=== PATIENT | female | born 1945 | race Caucasian/White ===

== ENCOUNTER 2019-07-16 22:34 | Inpatient (IN) | payer OTHER ==
[~2019-07-16] VITALS: Ht 170.2 cm; Wt 110.5 kg
[2019-07-16] MEDS ORDERED: FENTANYL-0.9 % NACL/PF 100 ML IV PRN (22:37)
[2019-07-16] MEDS ORDERED: midazolam 100mg in NS 100ml 100 ML IV PRN (22:37)
--- NOTE | 2019-07-16 22:39 | NUR ---
PT INTUBATED AT 2235 BY MD MENDEZ, ETOMIDATE 10MG, ROCURONIUM 70MG. ETT: 8.0, 22 @ [facility].
--- NOTE | 2019-07-16 22:49 | NUR ---
FAMILY AT ER - TAKEN TO RAP ROOM AND ADVISED THAT MD WOULD BE IN SHORTLY TO UPDATE THEM ON PTS STATUS.
[2019-07-16 22:56] LABS: BASOPHILS # (AUTO) 0.1 X10'3 (0-0.2); BASOPHILS % (AUTO) 1.2 % (0-1); EOSINOPHILS # (AUTO) 0.2 X10'3 (0-0.9); EOSINOPHILS % (AUTO) 1.5 % (0-6); HEMATOCRIT 36.4 % (35.0-45.0); HEMOGLOBIN 11.2 g/dl (12.0-16.0); LYMPHOCYTES # (AUTO) 1.5 X10'3 (1.1-4.8); LYMPHOCYTES % (AUTO) 12.9 % (21-51); MEAN CORPUSCULAR HEMOGLOBIN 28.6 PG (27.0-31.0); MEAN CORPUSCULAR HGB CONC 30.8 g/dL (33.0-36.5); MEAN CORPUSCULAR VOLUME 92.8 FL (78-98); MONOCYTES # (AUTO) 0.4 X10'3 (0-0.9); MONOCYTES % (AUTO) 3.3 % (2-12); NEUTROPHILS # (AUTO) 9.2 X10'3 (1.8-7.7); NEUTROPHILS % (AUTO) 81.1 % (42-75); PLATELET COUNT 200 X10'3 (140-440); RED BLOOD COUNT 3.92 X10'6 (4.20-5.60); RED CELL DISTRIBUTION WIDTH 17.2 % (11.5-14.5); WHITE BLOOD COUNT 11.4 X10'3 (4.5-11.0)
[2019-07-16] MEDS ORDERED: iohexol 350MG/ML 100ml bottle IV ONE (22:57)
[2019-07-16 23:06] LABS: PARTIAL THROMBOPLASTIN TIME 31 SECONDS (22-32)
[2019-07-16 23:08] LABS: UA COLLECTION TYPE FOLEY CATH
[2019-07-16 23:09] LABS: CLARITY,URINE TURBID (Clear); COLOR,URINE YELLOW (Yellow); GLUCOSE, URINE 100 mg/dl (Neg); KETONES,URINE NEGATIVE (Neg); LEUKOCYTE ESTERASE ,URINE LARGE (Neg); NITRITES, URINE NEGATIVE (Neg); OCCULT BLOOD,URINE LARGE (Neg); PROTEIN,URINE >=300 mg/dl (Neg); UROBILINOGEN,URINE 0.2 E.U/dL (0.2-1.0)
[2019-07-16 23:10] LABS: URINE AMPHETAMINE SCREEN NEGATIVE (Neg); URINE BARBITUATE SCREEN NEGATIVE (Neg); URINE BENZODIAZEPINES SCREEN NEGATIVE (Neg); URINE COCAINE SCREEN NEGATIVE (Neg); URINE METHADONE SCREEN NEGATIVE (Neg); URINE OPIATE SCREEN NEGATIVE (Neg)
[2019-07-16 23:11] LABS: ALANINE AMINOTRANSFERASE 61 U/L (12-78); ALBUMIN 2.8 G/DL (3.4-5.0); ALBUMIN/GLOBULIN RATIO 0.7 (1.1-1.5); ALKALINE PHOSPHATASE 163 IU/L (46-116); ANION GAP 13 (8-16); ASPARTATE AMINO TRANSFERASE 62 U/L (10-37); BILIRUBIN,TOTAL 0.2 MG/DL (0.1-1.0); BLOOD UREA NITROGEN 101 MG/DL (7-18); BUN/CREATININE RATIO 17.7 (6.6-38.0); CHLORIDE 108 MMOL/L (99-107); CREATININE 5.72 MG/DL (0.40-0.90); ETHANOL < 0.010 GM/DL (0.0-0.010); GLUCOSE 275 MG/DL (70-104); POTASSIUM 5.1 MMOL/L (3.5-5.1); SODIUM 141 MMOL/L (135-145); TOTAL CARBON DIOXIDE 19.6 MMOL/L (24-32); TOTAL PROTEIN 7.1 G/DL (6.4-8.2); eGFR 7 ML/MIN
[2019-07-16 23:14] LABS: BACTERIA,URINE 3+ /HPF (Neg); MUCUS STRANDS NONE SEEN /LPF (Neg); SQUAMOUS EPITHELIAL CELL,UR NONE SEEN /LPF (FEW); WBC,URINE TNTC /HPF (0-4)
[2019-07-16 23:21] LABS: URINE PHENCYCLIDINE SCREEN NEGATIVE (Neg)
[2019-07-16 23:26] LABS: URINE CANNABINOID SCREEN POSITIVE (Neg)
[2019-07-16] MEDS ORDERED: normal saline 1000ml 1,000 ML IV ONE (23:30)
[2019-07-16] MEDS ORDERED: CefTRIAXone 2gm/D5W 50ml 50 ML IV ONE (23:30)
[2019-07-17] VITALS (22 sets, daily range): BP systolic 127–165; BP diastolic 58–86
[2019-07-17] MEDS ORDERED: ASPI81TA30 PO (00:17)
[2019-07-17] MEDS ORDERED: CARV6.253 PO (00:20)
[2019-07-17] MEDS ORDERED: FURO40TA4 PO (00:21)
[2019-07-17] MEDS ORDERED: PREG50CA PO (00:22)
[2019-07-17] MEDS ORDERED: midazolam 100mg in NS 100ml 100 ML IV PRN (00:53)
[2019-07-17] MEDS ORDERED: potassium Cl 20mEq/100mL bag 100 ML IV PRN ×2 (00:55)
[2019-07-17] MEDS ORDERED: magnesium 2GM in 50ml NS 50 ML IV PRN (00:55)
[2019-07-17] MEDS ORDERED: magnesium 4gm in 100ml NS 100 ML IV PRN (00:55)
[2019-07-17] MEDS ORDERED: albuterol 2.5 MG/3 ML nebule NEB PRN (00:55)
[2019-07-17] MEDS ORDERED: acetaminophen 650mg rectal suppository RC PRN (00:55)
[2019-07-17] MEDS ORDERED: acetaminophen 325mg tablet PO PRN (00:55)
[2019-07-17 01:01] LABS: ABG BASE EXCESS -10.8 mmol/L (-2.0-3.0); ABG HCO3 17.6 mmol/L (22.0-26.0); ABG OXYGEN SATURATION 97.4 % (95-98); ABG PCO2 (T) 46.8 mmHg (35.0-45.0); ABG PH (T) 7.183 (7.350-7.450); ABG PO2 (T) 123.4 mmHg (83-108); FCOHb 0.7 % (0.5-1.5); FMetHb 0.3 % (0.3-1.12); FO2Hb 96.4 % (94-100); MINUTE VOLUME 7 L/min; PATIENT TEMPERATURE 35.3; PEEP 5 cm H2O; RESPIRATORY RATE 16 b/min; RESPIRATORY RATE (OBSERVED) 16 b/min; TIDAL VOLUME 400 mL; TOTAL HEMOGLOBIN 10.8 G/dl (12.0-16.0)
--- NOTE | 2019-07-17 01:01 | NUR ---
MD MENDEZ CONFIRMED CENTRAL LINE PLACEMENT WITH XRAY.
[2019-07-17 01:16] LABS: OXYGEN SATURATION (MIXED VEN) 71.5 % (60-80); PO2 MIXED VENOUS (TEMP COR) 38.7 mmHg (35-46)
[2019-07-17] MEDS: normal saline 1000ml 1,000 ML IV SCH ×4 (01:22→16:24)
[2019-07-17 01:34] LABS: BASOPHILS % (AUTO) 0.3 % (0-1); EOSINOPHILS # (AUTO) 0.1 X10'3 (0-0.9); EOSINOPHILS % (AUTO) 0.4 % (0-6); HEMATOCRIT 31.1 % (35.0-45.0); HEMOGLOBIN 9.7 g/dl (12.0-16.0); LYMPHOCYTES # (AUTO) 0.4 X10'3 (1.1-4.8); LYMPHOCYTES % (AUTO) 2.9 % (21-51); MEAN CORPUSCULAR HEMOGLOBIN 28.5 PG (27.0-31.0); MEAN CORPUSCULAR HGB CONC 31.2 g/dL (33.0-36.5); MEAN CORPUSCULAR VOLUME 91.2 FL (78-98); MEAN PLATELET VOLUME 9.7 FL (7.4-10.4); MONOCYTES # (AUTO) 0.8 X10'3 (0-0.9); MONOCYTES % (AUTO) 5.2 % (2-12); NEUTROPHILS # (AUTO) 13.9 X10'3 (1.8-7.7); NEUTROPHILS % (AUTO) 91.2 % (42-75); PLATELET COUNT 170 X10'3 (140-440); RED BLOOD COUNT 3.41 X10'6 (4.20-5.60); WHITE BLOOD COUNT 15.3 X10'3 (4.5-11.0)
[2019-07-17 01:45] LABS: PARTIAL THROMBOPLASTIN TIME 32 SECONDS (22-32)
[2019-07-17 01:46] LABS: ALANINE AMINOTRANSFERASE 74 U/L (12-78); ALBUMIN 2.2 G/DL (3.4-5.0); ALBUMIN/GLOBULIN RATIO 0.6 (1.1-1.5); ALKALINE PHOSPHATASE 142 IU/L (46-116); ANION GAP 12 (8-16); ASPARTATE AMINO TRANSFERASE 88 U/L (10-37); BILIRUBIN,TOTAL 0.2 MG/DL (0.1-1.0); BLOOD UREA NITROGEN 107 MG/DL (7-18); BUN/CREATININE RATIO 18.4 (6.6-38.0); CALCIUM 6.4 MG/DL (8.5-10.1); CHLORIDE 110 MMOL/L (99-107); CREATININE 5.83 MG/DL (0.40-0.90); GLUCOSE 234 MG/DL (70-104); POTASSIUM 4.8 MMOL/L (3.5-5.1); SODIUM 142 MMOL/L (135-145); TOTAL CARBON DIOXIDE 20.1 MMOL/L (24-32); TOTAL PROTEIN 5.7 G/DL (6.4-8.2); eGFR 7 ML/MIN
[2019-07-17 01:56] LABS: MAGNESIUM 2.6 MG/DL (1.5-2.4); TROPONIN I 0.07 NG/ML (0.0-0.05)
--- NOTE | 2019-07-17 02:10 | NUR ---
Patient in room CICU 2007 via jungrryan. I have received report from BACKUP ADMINISTRATORJONEL Catalan and had the opportunity to ask questions and assume patient care.
[2019-07-17] MEDS ORDERED: diphenhydrAMINE 50 mg/ml inj IV ONE (02:35)
[2019-07-17] MEDS ORDERED: famotidine/PF 10 mg/ml inj IV ONE (02:35)
[2019-07-17] MEDS ORDERED: DOPamine 400mg/D5W 250ml 250 ML IV ONE (02:35)
[2019-07-17] MEDS: ipratropium/albuterol 3ml nebule NEB SCH ×6 (03:02→23:38)
[2019-07-17] MEDS ORDERED: MESSAGE TO PHARMACY PO ONE (04:45)
[2019-07-17] MEDS ORDERED: dextrose ORAL solution 15 GM/59 ML bottle PO PRN ×2 (04:45)
[2019-07-17] MEDS ORDERED: insulin Lispro (HumaLOG) vial - multi-dose SQ SCH (04:45)
[2019-07-17] MEDS ORDERED: dextrose 50%-water 50ml dispensing syringe IV PRN ×2 (04:45)
[2019-07-17] MEDS ORDERED: glucagon, human recombinant 1mg kit SUBCUT PRN (04:45)
[2019-07-17 04:59] LABS: HEMOGLOBIN A1C 7.7 % (4.5-6.2)
--- NOTE | 2019-07-17 06:30 | NUR ---
Problems reprioritized. Patient report given, questions answered & plan of care reviewed with Bill REMY.
--- NOTE | 2019-07-17 06:35 | NUR ---
Patient in room CICU 2006. I have received report from JONEL Moreno and had the opportunity to ask questions and assume patient care.
[2019-07-17] MEDS: docusate sodium 100mg/10ml UD cup PO SCH ×2 (07:40→23:03)
[2019-07-17] MEDS: aspirin 81mg tab.chew PO SCH (07:40)
[2019-07-17] MEDS: pantoprazole 40 MG vial IV SCH (07:40)
[2019-07-17 07:51] LABS: ALBUMIN 2.3 G/DL (3.4-5.0); ANION GAP 15 (8-16); BLOOD UREA NITROGEN 105 MG/DL (7-18); CALCIUM 6.8 MG/DL (8.5-10.1); CHLORIDE 110 MMOL/L (99-107); CKMB RELATIVE INDEX 4.5 RATIO (0-2.5); CREATINE KINASE 162 U/L (26-192); CREATININE 5.54 MG/DL (0.40-0.90); GLUCOSE 218 MG/DL (70-104); MAGNESIUM 2.5 MG/DL (1.5-2.4); POTASSIUM 4.2 MMOL/L (3.5-5.1); SODIUM 144 MMOL/L (135-145); TROPONIN I 0.46 NG/ML (0.0-0.05); eGFR 7 ML/MIN
[2019-07-17] MEDS: DOPamine 400mg/D5W 250ml 250 ML IV SCH ×2 (07:59→20:31)
[2019-07-17] MEDS: carvedilol 6.25mg tablet PO SCH ×2 (08:00→20:00)
[2019-07-17 08:01] LABS: OXYGEN SATURATION (MIXED VEN) 72.4 % (60-80); PO2 MIXED VENOUS (TEMP COR) 25.8 mmHg (35-46)
[2019-07-17 08:01] LABS: ABG BASE EXCESS -8.9 mmol/L (-2.0-3.0); ABG HCO3 15.7 mmol/L (22.0-26.0); ABG OXYGEN SATURATION 94.6 % (95-98); ABG PCO2 (T) 24.8 mmHg (35.0-45.0); ABG PH (T) 7.399 (7.350-7.450); ABG PO2 (T) 55.8 mmHg (83-108); FCOHb 0.3 % (0.5-1.5); FMetHb 0.3 % (0.3-1.12); MINUTE VOLUME 8 L/min; PATIENT TEMPERATURE 32.5; PEEP 5 cm H2O; RESPIRATORY RATE 20 b/min; RESPIRATORY RATE (OBSERVED) 20 b/min; TIDAL VOLUME 400 mL; TOTAL HEMOGLOBIN 11.5 G/dl (12.0-16.0)
--- NOTE | 2019-07-17 12:26 | NUR ---
Patient is s/p code, currently on hypothermia protocol. Must be NPO. Will continue to follow. Addendum: 07/17/19 at [address] Amended: Links added.
[2019-07-17 14:04] LABS: ANION GAP 13 (8-16); BLOOD UREA NITROGEN 98 MG/DL (7-18); BUN/CREATININE RATIO 20.1 (6.6-38.0); CALCIUM 6.5 MG/DL (8.5-10.1); CHLORIDE 114 MMOL/L (99-107); CREATININE 4.88 MG/DL (0.40-0.90); GLUCOSE 151 MG/DL (70-104); MAGNESIUM 2.4 MG/DL (1.5-2.4); SODIUM 146 MMOL/L (135-145); TOTAL CARBON DIOXIDE 18.9 MMOL/L (24-32); eGFR 9 ML/MIN
[2019-07-17 14:12] LABS: POTASSIUM 3.5 MMOL/L (3.5-5.1)
[2019-07-17] MEDS: FENTANYL-0.9 % NACL/PF 100 ML IV PRN (14:19)
[2019-07-17 15:01] LABS: OXYGEN SATURATION (MIXED VEN) 63.7 % (60-80); PO2 MIXED VENOUS (TEMP COR) 23.9 mmHg (35-46)
[2019-07-17 15:06] LABS: ABG BASE EXCESS -7.8 mmol/L (-2.0-3.0); ABG HCO3 16.7 mmol/L (22.0-26.0); ABG OXYGEN SATURATION 94.8 % (95-98); ABG PCO2 (T) 25.3 mmHg (35.0-45.0); ABG PH (T) 7.417 (7.350-7.450); ABG PO2 (T) 58.6 mmHg (83-108); FCOHb 0.1 % (0.5-1.5); FMetHb 0.3 % (0.3-1.12); FO2Hb 94.4 % (94-100); MINUTE VOLUME 8 L/min; PATIENT TEMPERATURE 32.7; PEEP 5 cm H2O; RESPIRATORY RATE 20 b/min; RESPIRATORY RATE (OBSERVED) 19 b/min; TIDAL VOLUME 400 mL; TOTAL HEMOGLOBIN 10.6 G/dl (12.0-16.0)
[2019-07-17 17:19] LABS: ALBUMIN 2.1 G/DL (3.4-5.0); ANION GAP 14 (8-16); BLOOD UREA NITROGEN 99 MG/DL (7-18); BUN/CREATININE RATIO 19.5 (6.6-38.0); CALCIUM 6.8 MG/DL (8.5-10.1); CHLORIDE 113 MMOL/L (99-107); CREATINE KINASE 182 U/L (26-192); CREATININE 5.08 MG/DL (0.40-0.90); GLUCOSE 140 MG/DL (70-104); MAGNESIUM 2.4 MG/DL (1.5-2.4); POTASSIUM 3.5 MMOL/L (3.5-5.1); SODIUM 146 MMOL/L (135-145); eGFR 8 ML/MIN
[2019-07-17 17:32] LABS: TROPONIN I 1.78 NG/ML (0.0-0.05)
--- NOTE | 2019-07-17 18:23 | NUR ---
Problems reprioritized. Patient report given, questions answered & plan of care reviewed with Shilpi REMY.
--- NOTE | 2019-07-17 18:30 | NUR ---
Patient in room CICU 2006. I have received report from Ian REMY, and had the opportunity to ask questions and assume patient care.
--- NOTE | 2019-07-17 19:30 | NUR ---
PT is intubated and mechanically vented, tolerating settings well. O2 sat >96%. PT is sedated with Fent and Vesed, BIZ is in 60's. PT is in the cooling phase of hypothermia protocol, will begin to re-warm at 0200 on 07/18. PT family is at bedside. Kaba in place draining to gravity. OG is to LIS, clear/yellow drainage noted in tubing. Bed is locked and low. Bilat soft wrist restraints in place and secure. Will continue to monitor.
[2019-07-17 19:31] LABS: ABG HCO3 15.6 mmol/L (22.0-26.0); ABG OXYGEN SATURATION 94.8 % (95-98); ABG PCO2 (T) 24.7 mmHg (35.0-45.0); ABG PH (T) 7.399 (7.350-7.450); ALLEN'S TEST Positive; FCOHb 0.3 % (0.5-1.5); FMetHb 0.3 % (0.3-1.12); FO2Hb 94.2 % (94-100); MINUTE VOLUME 8 L/min; PATIENT TEMPERATURE 32.9; PEEP 5 cm H2O; RESPIRATORY RATE 20 b/min; RESPIRATORY RATE (OBSERVED) 20 b/min; TIDAL VOLUME 400 mL
[2019-07-17] MEDS: insulin glargine (Lantus) pen - multi-dose SQ SCH (21:00)
[2019-07-17 22:22] LABS: CLARITY,URINE SLIGHTLY CLOUDY (Clear); COLOR,URINE YELLOW (Yellow); GLUCOSE, URINE 100 mg/dl (Neg); KETONES,URINE NEGATIVE (Neg); LEUKOCYTE ESTERASE ,URINE MODERATE (Neg); NITRITES, URINE NEGATIVE (Neg); OCCULT BLOOD,URINE MODERATE (Neg); PH,URINE 5.5 (4.8-8.0); PROTEIN,URINE 100 mg/dl (Neg); UROBILINOGEN,URINE 0.2 E.U/dL (0.2-1.0)
[2019-07-17 22:23] LABS: UA COLLECTION TYPE FOLEY CATH
[2019-07-17 22:28] LABS: RBC,URINE NONE SEEN /HPF (0-2); WBC,URINE TNTC /HPF (0-4)
[2019-07-17 22:29] LABS: BACTERIA,URINE 1+ /HPF (Neg); SQUAMOUS EPITHELIAL CELL,UR FEW /LPF (FEW); TRANSITIONAL EPI CELLS,URINE FEW /HPF; WBC CLUMPS,URINE MODERATE /HPF (NEGATIVE)
[2019-07-17 22:30] LABS: COARSE GRANULAR CAST 0-3 /LPF (NEGATIVE)
--- NOTE | 2019-07-17 22:30 | NUR ---
PT resting with no s/s of distress noted at this time. VSS. Bed is locked and low. Bialt soft wrist restraints remain in place and secure. Will continue to monitor.
[2019-07-17 22:31] LABS: TOTAL PROTEIN,URINE RANDOM 98.7 MG/DL
[2019-07-17] MEDS: CefTRIAXone 2gm/D5W 50ml 50 ML IV SCH (22:58)
[2019-07-17] MEDS: lactobacillus rhamnosus 10,000 MMU CELLS/CAPSULE PO SCH (23:03)
[2019-07-17 23:27] LABS: UA EOSINOPHILS MOD EOS /HPF
[2019-07-18] VITALS (24 sets, daily range): BP systolic 104–161; BP diastolic 52–105
[2019-07-18] MEDS: normal saline 1000ml 1,000 ML IV SCH ×3 (00:23→17:14)
[2019-07-18 01:20] LABS: BASOPHILS # (AUTO) 0.1 X10'3 (0-0.2); BASOPHILS % (AUTO) 0.7 % (0-1); EOSINOPHILS # (AUTO) 0.3 X10'3 (0-0.9); EOSINOPHILS % (AUTO) 3.9 % (0-6); HEMATOCRIT 32.3 % (35.0-45.0); HEMOGLOBIN 10.2 g/dl (12.0-16.0); LYMPHOCYTES # (AUTO) 0.4 X10'3 (1.1-4.8); LYMPHOCYTES % (AUTO) 5.7 % (21-51); MEAN CORPUSCULAR HEMOGLOBIN 28.4 PG (27.0-31.0); MEAN CORPUSCULAR HGB CONC 31.6 g/dL (33.0-36.5); MEAN CORPUSCULAR VOLUME 89.7 FL (78-98); MEAN PLATELET VOLUME 9.4 FL (7.4-10.4); MONOCYTES # (AUTO) 0.3 X10'3 (0-0.9); MONOCYTES % (AUTO) 4.5 % (2-12); NEUTROPHILS # (AUTO) 6.2 X10'3 (1.8-7.7); NEUTROPHILS % (AUTO) 85.2 % (42-75); PLATELET COUNT 159 X10'3 (140-440); RED CELL DISTRIBUTION WIDTH 16.7 % (11.5-14.5); WHITE BLOOD COUNT 7.3 X10'3 (4.5-11.0)
[2019-07-18 01:43] LABS: ALANINE AMINOTRANSFERASE 53 U/L (12-78); ALBUMIN 2.1 G/DL (3.4-5.0); ALBUMIN/GLOBULIN RATIO 0.6 (1.1-1.5); ALKALINE PHOSPHATASE 87 IU/L (46-116); ANION GAP 13 (8-16); ASPARTATE AMINO TRANSFERASE 38 U/L (10-37); BILIRUBIN,TOTAL 0.2 MG/DL (0.1-1.0); BLOOD UREA NITROGEN 98 MG/DL (7-18); BUN/CREATININE RATIO 18.6 (6.6-38.0); CALCIUM 6.8 MG/DL (8.5-10.1); CHLORIDE 114 MMOL/L (99-107); CKMB RELATIVE INDEX 9.4 RATIO (0-2.5); CREATINE KINASE 190 U/L (26-192); CREATININE 5.26 MG/DL (0.40-0.90); GLUCOSE 138 MG/DL (70-104); MAGNESIUM 2.3 MG/DL (1.5-2.4); PARTIAL THROMBOPLASTIN TIME 35 SECONDS (22-32); PHOSPHORUS 6.3 MG/DL (2.3-4.5); POTASSIUM 3.8 MMOL/L (3.5-5.1); SODIUM 148 MMOL/L (135-145); TOTAL CARBON DIOXIDE 21.2 MMOL/L (24-32); TOTAL PROTEIN 5.7 G/DL (6.4-8.2); eGFR 8 ML/MIN
[2019-07-18 01:49] LABS: TROPONIN I 2.14 NG/ML (0.0-0.05)
--- NOTE | 2019-07-18 01:55 | NUR ---
Received critical Troponin of 2.14. DROP HAMMER PILE DRIVER OPERATOR Rip notified. Received order for SubQ heparin and to re-check in 6hrs. Will continue to monitor.
--- NOTE | 2019-07-18 02:05 | NUR ---
Beginning to re-warm PT. Thermostat turned up in room and ventilator temperature changed from non-invasive to invasive. No shivering noted. Will continue to monitor.
[2019-07-18] MEDS: mineral oil/petrolatum ophthal oint EACHEYE SCH ×4 (02:15→20:00)
[2019-07-18] MEDS: ipratropium/albuterol 3ml nebule NEB SCH ×7 (03:06→22:39)
[2019-07-18 03:31] LABS: ABG BASE EXCESS -10.1 mmol/L (-2.0-3.0); ABG HCO3 16.5 mmol/L (22.0-26.0); ABG PCO2 (T) 33.7 mmHg (35.0-45.0); ABG PO2 (T) 62.1 mmHg (83-108); FCOHb 0.4 % (0.5-1.5); FMetHb 0.3 % (0.3-1.12); FO2Hb 92.3 % (94-100); MINUTE VOLUME 8 L/min; PATIENT TEMPERATURE 33.8; PEEP 5 cm H2O; RESPIRATORY RATE 20 b/min; RESPIRATORY RATE (OBSERVED) 20 b/min; TIDAL VOLUME 400 mL; TOTAL HEMOGLOBIN 11.2 G/dl (12.0-16.0)
--- NOTE | 2019-07-18 04:45 | NUR ---
PT is starting to have more purposeful movement. While performing personal hygiene, PT was noted to be attempting to move her shoulders and arms, lower extremities also noted to have made slight movements. PT did slightly open LT eye. Asked PT if she could squeeze my hands but no response. Pt was then asked to open her eyes and she opened her LT eye to command. PT is edematous and RT eye is a bit more swollen then LT. Will continue to monitor.
--- NOTE | 2019-07-18 06:25 | NUR ---
Problems reprioritized. Patient report given, questions answered & plan of care reviewed with Jack REMY.
[2019-07-18] MEDS: aspirin 81mg tab.chew PO SCH (07:31)
[2019-07-18] MEDS: lactobacillus rhamnosus 10,000 MMU CELLS/CAPSULE PO SCH ×2 (07:31→20:04)
[2019-07-18] MEDS: docusate sodium 100mg/10ml UD cup PO SCH ×2 (07:31→20:00)
[2019-07-18] MEDS: carvedilol 6.25mg tablet PO SCH ×2 (07:32→20:05)
[2019-07-18] MEDS: heparin, porcine 5000 units/ml vial SQ SCH ×2 (07:33→20:05)
[2019-07-18] MEDS: FENTANYL-0.9 % NACL/PF 100 ML IV PRN (09:12)
[2019-07-18 10:02] LABS: CKMB RELATIVE INDEX 12.4 RATIO (0-2.5); CREATINE KINASE 217 U/L (26-192)
[2019-07-18 10:12] LABS: TROPONIN I 2.31 NG/ML (0.0-0.05)
[2019-07-18] MEDS: DOPamine 400mg/D5W 250ml 250 ML IV SCH (10:17)
[2019-07-18] MEDS: pantoprazole 40 MG vial IV SCH (11:13)
[2019-07-18] MEDS ORDERED: REPA1TAB22 PO (11:33)
[2019-07-18] MEDS: acetaminophen 325mg tablet PO PRN ×2 (12:11→19:21)
--- NOTE | 2019-07-18 13:26 | NUR ---
TF consult: Pt s/p hypothermia protocol and rewarming per RN at critical care rounds. Pt remains intubated at this time with an OG tube. TF recommendations below calculated to meet 100% of patient's estimated nutrient needs. Pt admit s/p cardiac arrest with sepsis, acute renal failure, and acute resp fail. Pt with hx acute renal failure requiring HD for six months per H&P, pt may need dialysis again per MD at critical care rounds. Pt with T2DM current A1c 7.7, DM ed not appropriate at this time. LBM 07/18. Will continue to follow. Recommendations: 1) Continuous TF via OG tube with Vital High Protein to begin at 20 mL/hr and advance by 20 mL Q8H as tolerated to goal of 65 mL/hr to provide: 1560 mL total volume/day, 1560 kcal, 137 g protein, and 1304 mL water 2) Additional 200 mL water flush Q4H 3) Prealbumin q / 4) Daily weights 5) Once extubated advance diet to heart healthy renal CHO controlled as medically indicated Addendum: 07/18/19 at [address] Amended: Links added.
[2019-07-18] MEDS ORDERED: midazolam 100mg in NS 100ml 100 ML IV PRN (14:08)
[2019-07-18] MEDS ORDERED: FENTANYL-0.9 % NACL/PF 100 ML IV PRN (14:08)
[2019-07-18 14:21] LABS: MAGNESIUM 2.3 MG/DL (1.5-2.4); POTASSIUM 4.5 MMOL/L (3.5-5.1)
[2019-07-18 14:56] LABS: ALBUMIN 2.3 G/DL (3.4-5.0); ANION GAP 17 (8-16); BLOOD UREA NITROGEN 94 MG/DL (7-18); BUN/CREATININE RATIO 19.3 (6.6-38.0); CALCIUM 6.9 MG/DL (8.5-10.1); CHLORIDE 113 MMOL/L (99-107); CREATININE 4.86 MG/DL (0.40-0.90); GLUCOSE 133 MG/DL (70-104); PREALBUMIN 17.6 MG/DL (19-36); SODIUM 147 MMOL/L (135-145); TOTAL CARBON DIOXIDE 17.2 MMOL/L (24-32); eGFR 9 ML/MIN
[2019-07-18] MEDS ORDERED: racepinephrine 11.25mg/0.5ml nebule NEB PRN (16:05)
[2019-07-18] MEDS ORDERED: ipratropium/albuterol 3ml nebule NEB PRN (16:05)
[2019-07-18] MEDS ORDERED: morphine 2 MG/ML inj. syringe IV PRN (18:05)
[2019-07-18 18:13] LABS: ALBUMIN 2.4 G/DL (3.4-5.0); ANION GAP 17 (8-16); BLOOD UREA NITROGEN 92 MG/DL (7-18); CALCIUM 7.1 MG/DL (8.5-10.1); CHLORIDE 113 MMOL/L (99-107); CREATINE KINASE 352 U/L (26-192); CREATININE 5.12 MG/DL (0.40-0.90); GLUCOSE 97 MG/DL (70-104); MAGNESIUM 2.2 MG/DL (1.5-2.4); POTASSIUM 4.9 MMOL/L (3.5-5.1); SODIUM 146 MMOL/L (135-145); TOTAL CARBON DIOXIDE 16.2 MMOL/L (24-32); eGFR 8 ML/MIN
[2019-07-18 18:21] LABS: TROPONIN I 2.11 NG/ML (0.0-0.05)
--- NOTE | 2019-07-18 18:30 | NUR ---
Patient in room CICU 2006. I have received report from Hyacinth REMY, and had the opportunity to ask questions and assume patient care.
--- NOTE | 2019-07-18 19:30 | NUR ---
PT is sitting up in bed with no s/s of distress noted at this time. VSS. PT is receiving 5L O2 to NC, tolerating well O2 sat >96%. Family is at bedside. Bed is locked and low. Call light is within reach. Will continue to monitor.
[2019-07-18] MEDS: insulin glargine (Lantus) pen - multi-dose SQ SCH (21:00)
[2019-07-18] MEDS: CefTRIAXone 2gm/D5W 50ml 50 ML IV SCH (21:53)
--- NOTE | 2019-07-18 23:30 | NUR ---
PT sleeping with no s/s of distress noted at this time. VSS. Bed is locked and low. Call light is within reach. Will continue to monitor.
[2019-07-19] VITALS (22 sets, daily range): BP systolic 127–159; BP diastolic 56–81
[2019-07-19] MEDS: DOPamine 400mg/D5W 250ml 250 ML IV SCH (00:03)
[2019-07-19] MEDS ORDERED: lactulose 20gm/30ml cup PO PRN (00:55)
[2019-07-19] MEDS: normal saline 1000ml 1,000 ML IV SCH ×2 (01:17→08:38)
[2019-07-19] MEDS: mineral oil/petrolatum ophthal oint EACHEYE SCH ×4 (02:00→20:00)
--- NOTE | 2019-07-19 02:40 | NUR ---
PT continues to sleep with no s/s of distress noted at this time. VSS. Bed is locked and low. Call light is within reach. Will continue to monitor.
[2019-07-19] MEDS: ipratropium/albuterol 3ml nebule NEB SCH ×4 (02:43→20:18)
[2019-07-19 03:08] LABS: BASOPHILS # (AUTO) 0.1 X10'3 (0-0.2); BASOPHILS % (AUTO) 0.8 % (0-1); EOSINOPHILS # (AUTO) 0.1 X10'3 (0-0.9); EOSINOPHILS % (AUTO) 1.4 % (0-6); HEMATOCRIT 28.6 % (35.0-45.0); HEMOGLOBIN 9.1 g/dl (12.0-16.0); LYMPHOCYTES # (AUTO) 0.5 X10'3 (1.1-4.8); LYMPHOCYTES % (AUTO) 5.7 % (21-51); MEAN CORPUSCULAR HEMOGLOBIN 28.7 PG (27.0-31.0); MEAN CORPUSCULAR HGB CONC 31.7 g/dL (33.0-36.5); MEAN CORPUSCULAR VOLUME 90.6 FL (78-98); MEAN PLATELET VOLUME 9.9 FL (7.4-10.4); MONOCYTES # (AUTO) 0.6 X10'3 (0-0.9); MONOCYTES % (AUTO) 6.7 % (2-12); NEUTROPHILS # (AUTO) 7.4 X10'3 (1.8-7.7); NEUTROPHILS % (AUTO) 85.4 % (42-75); PLATELET COUNT 162 X10'3 (140-440); RED BLOOD COUNT 3.16 X10'6 (4.20-5.60); RED CELL DISTRIBUTION WIDTH 16.9 % (11.5-14.5); WHITE BLOOD COUNT 8.7 X10'3 (4.5-11.0)
[2019-07-19 03:15] LABS: PARTIAL THROMBOPLASTIN TIME 37 SECONDS (22-32)
[2019-07-19 03:18] LABS: ALANINE AMINOTRANSFERASE 43 U/L (12-78); ALBUMIN 2.2 G/DL (3.4-5.0); ALBUMIN/GLOBULIN RATIO 0.6 (1.1-1.5); ALKALINE PHOSPHATASE 74 IU/L (46-116); ANION GAP 15 (8-16); ASPARTATE AMINO TRANSFERASE 30 U/L (10-37); BILIRUBIN,TOTAL 0.2 MG/DL (0.1-1.0); BLOOD UREA NITROGEN 91 MG/DL (7-18); BUN/CREATININE RATIO 17.8 (6.6-38.0); CHLORIDE 114 MMOL/L (99-107); CREATININE 5.11 MG/DL (0.40-0.90); GLUCOSE 93 MG/DL (70-104); MAGNESIUM 2.2 MG/DL (1.5-2.4); PHOSPHORUS 7.4 MG/DL (2.3-4.5); POTASSIUM 4.4 MMOL/L (3.5-5.1); SODIUM 146 MMOL/L (135-145); TOTAL CARBON DIOXIDE 16.8 MMOL/L (24-32); TOTAL PROTEIN 5.9 G/DL (6.4-8.2); eGFR 8 ML/MIN
--- NOTE | 2019-07-19 06:15 | NUR ---
Problems reprioritized. Patient report given, questions answered & plan of care reviewed with
[2019-07-19] MEDS: docusate sodium 100mg/10ml UD cup PO SCH ×2 (08:27→19:45)
[2019-07-19] MEDS: pantoprazole 40 MG vial IV SCH (08:27)
[2019-07-19] MEDS: carvedilol 6.25mg tablet PO SCH ×2 (08:28→20:00)
[2019-07-19] MEDS: aspirin 81mg tab.chew PO SCH (08:28)
[2019-07-19] MEDS: heparin, porcine 5000 units/ml vial SQ SCH ×2 (08:28→19:45)
[2019-07-19] MEDS: lactobacillus rhamnosus 10,000 MMU CELLS/CAPSULE PO SCH ×2 (08:28→19:45)
--- NOTE | 2019-07-19 12:14 | NUR ---
Reassessment: patient extubated yesterday, diet advanced per SEASONAL WAREHOUSE ASSOCIATE recs to pureed foods and thin liquids, BSS done this morning. Pt consumed 25% of her milk from her first meal, poor appetite after extubation. Tube feedings stopped, pt no longer has OG tube. Pt is s/p hypothermia protocol and rewarming. Pt admit s/p cardiac arrest with sepsis, acute renal failure, and acute resp fail. Pt with T2DM current A1c 7.7, DM ed not appropriate at this time. LBM 07/18. Will continue to follow. Recommendations: 1) Continue pureed diet with thin liquid per SEASONAL WAREHOUSE ASSOCIATE recs 2) Monitor appetite, may need ONS if continues with poor appetite and suboptimal food intake 3) routine bowel care 4) wt per rx Addendum: 07/19/19 at [address] Amended: Links added.
[2019-07-19] MEDS: HYDROcodone/acetaminophen 10/325mg tab PO PRN ×2 (15:26→21:51)
[2019-07-19] MEDS: insulin glargine (Lantus) pen - multi-dose SQ SCH (21:00)
[2019-07-19] MEDS: CefTRIAXone 2gm/D5W 50ml 50 ML IV SCH (21:49)
[2019-07-20] VITALS (24 sets, daily range): BP systolic 121–179; BP diastolic 57–84
[2019-07-20] MEDS: ondansetron/PF 4mg/2ml inj IV PRN ×2 (01:22→10:19)
[2019-07-20] MEDS: mineral oil/petrolatum ophthal oint EACHEYE SCH ×4 (01:45→20:00)
--- NOTE | 2019-07-20 01:45 | NUR ---
PATIENT CALLED OUT TO SAY SHE WAS UNCOMFORTABLE. PAIN MED NOT DUE YET. PATIENT REFUSED MORPHINE AND SAID SHE WOULD WAIT FOR WHEN THE NORCO WAS DUE. BATH/BED CHANGE, PATIENT CHEST CONGESTED PRIOR TO TURNING. DURING THE TURN, I DID MANUAL CHEST PT, PATIENT COUGHED UP A SCANT AMOUNT AND SAID SHE WAS UNCOMFORTABLE - I STOPPED, PUT HER HEAD UP AND WITH 45 DEGREES HOB UP, PATIENT THEN PROJECTILE VOMITED AT LEAST 700 ML OF VOMIT WITH UNDIGESTED FOOD AND BROWN LIQUID VOMITUS. THIS SHIFT - PATIENT HAD ONLY WATER, REFUSED HER DINNER TRAY EXCEPT FOR 2 SPOONFULS OF VANILLA PUDDING. FAMILY WAS HERE VISITING EARLIER IN THE SHIFT AND I ASKED PATIENT IF SHE HAD EATEN FOOD HER FAMILY BROUGHT FROM HOME. SHE TOLD ME SHE DID NOT. PATIENT SAID THE NAUSEA CAME ON SUDDENLY - SHE DID NOT FEEL NAUSEAS WHEN HER HEAD WAS DOWN. PATIENT DID NOT APPEAR TO ASPIRATE ANYTHING. I CAN NOT EXPLAIN THE AMOUNT OR CONSISTENCY OF WHAT THE PATIENT VOMITED. I GAVE THE PATIENT A DOSE OF ZOFRAN PER ORDER. I CALLED RT TO PERHAPS GIVE A BREATHING TX BECAUSE PATIENT WAS NOW VERY WHEEZY. RT IN AND DID 2 TREATMENTS AND A RACEMIC EPI TX PATIENT THEN ASKED FOR SOME ICE CHIPS. SHE TOOK ICE CHIPS WITH NO COMPLICATIONS. WHEEZINESS SLOWLY IMPROVED. PATIENT THEN FELL ASLEEP AFTER BED WAS CHANGED ONCE AGAIN. N/V BAG AT WITHIN PATIENT REACH WELL CALL LIGHT. HOB UP NEAR 40 DEGREES
[2019-07-20] MEDS: ipratropium/albuterol 3ml nebule NEB SCH ×4 (01:54→20:22)
[2019-07-20 02:44] LABS: PARTIAL THROMBOPLASTIN TIME 56 SECONDS (22-32)
[2019-07-20] MEDS: HYDROcodone/acetaminophen 10/325mg tab PO PRN ×2 (05:44→20:50)
[2019-07-20 06:24] LABS: ALANINE AMINOTRANSFERASE 39 U/L (12-78); ALBUMIN 2.5 G/DL (3.4-5.0); ALBUMIN/GLOBULIN RATIO 0.6 (1.1-1.5); ALKALINE PHOSPHATASE 78 IU/L (46-116); ANION GAP 16 (8-16); ASPARTATE AMINO TRANSFERASE 27 U/L (10-37); BILIRUBIN,TOTAL 0.2 MG/DL (0.1-1.0); BLOOD UREA NITROGEN 96 MG/DL (7-18); BUN/CREATININE RATIO 17.1 (6.6-38.0); CALCIUM 7.4 MG/DL (8.5-10.1); CHLORIDE 112 MMOL/L (99-107); CREATININE 5.63 MG/DL (0.40-0.90); GLUCOSE 104 MG/DL (70-104); MAGNESIUM 2.3 MG/DL (1.5-2.4); PHOSPHORUS 7.9 MG/DL (2.3-4.5); POTASSIUM 4.7 MMOL/L (3.5-5.1); SODIUM 144 MMOL/L (135-145); TOTAL CARBON DIOXIDE 16.4 MMOL/L (24-32); TOTAL PROTEIN 6.6 G/DL (6.4-8.2); eGFR 7 ML/MIN
[2019-07-20 06:34] LABS: BASOPHILS # (AUTO) 0.1 X10'3 (0-0.2); BASOPHILS % (AUTO) 0.7 % (0-1); EOSINOPHILS # (AUTO) 0.2 X10'3 (0-0.9); EOSINOPHILS % (AUTO) 2.2 % (0-6); HEMATOCRIT 29.4 % (35.0-45.0); HEMOGLOBIN 9.1 g/dl (12.0-16.0); LYMPHOCYTES # (AUTO) 0.5 X10'3 (1.1-4.8); LYMPHOCYTES % (AUTO) 5.3 % (21-51); MEAN CORPUSCULAR HEMOGLOBIN 28.2 PG (27.0-31.0); MEAN CORPUSCULAR HGB CONC 30.9 g/dL (33.0-36.5); MEAN CORPUSCULAR VOLUME 91.2 FL (78-98); MEAN PLATELET VOLUME 9.7 FL (7.4-10.4); MONOCYTES # (AUTO) 0.7 X10'3 (0-0.9); MONOCYTES % (AUTO) 7.4 % (2-12); NEUTROPHILS # (AUTO) 7.9 X10'3 (1.8-7.7); NEUTROPHILS % (AUTO) 84.4 % (42-75); PLATELET COUNT 163 X10'3 (140-440); RED BLOOD COUNT 3.23 X10'6 (4.20-5.60); RED CELL DISTRIBUTION WIDTH 17.5 % (11.5-14.5); WHITE BLOOD COUNT 9.3 X10'3 (4.5-11.0)
--- NOTE | 2019-07-20 06:45 | NUR ---
Patient in room CICU 2006. I have received report from Ronal and had the opportunity to ask questions and assume patient care. Assumed care with JONEL Scott.
[2019-07-20] MEDS: lactobacillus rhamnosus 10,000 MMU CELLS/CAPSULE PO SCH ×2 (08:23→20:23)
[2019-07-20] MEDS: carvedilol 6.25mg tablet PO SCH ×2 (08:23→20:00)
[2019-07-20] MEDS: pantoprazole 40mg Tablet.DR PO SCH (08:23)
[2019-07-20] MEDS: docusate sodium 100mg/10ml UD cup PO SCH ×2 (08:24→20:22)
[2019-07-20] MEDS: clopidogrel 75mg tablet PO SCH (08:24)
[2019-07-20] MEDS: aspirin 81mg tab.chew PO SCH (08:24)
[2019-07-20] MEDS: heparin, porcine 5000 units/ml vial SQ SCH ×2 (11:09→20:24)
[2019-07-20] MEDS ORDERED: furosemide 40mg/4ml inj IV ONE (11:25)
[2019-07-20] MEDS ORDERED: furosemide 10 MG/1 ML 10ml inj IV ONE (11:25)
--- NOTE | 2019-07-20 17:40 | NUR ---
Agree with assessment as charted by JONEL Scott, exception would be noted in my own assessment. Dr Navarro rounded earlier, no interventions needed by him. Ok by him for transfer to [facility] via [facility], not commercial or drive. Order placed in record for d/c planning in am. Family will absorb costs for medi vac to country of origin. Per Dr Higgins, leave CVL in until patient ready to transfer out of hospital.
--- NOTE | 2019-07-20 18:35 | NUR ---
Problems reprioritized. Patient report given, questions answered & plan of care reviewed with Miguel A.
[2019-07-20] MEDS: insulin glargine (Lantus) pen - multi-dose SQ SCH (20:26)
[2019-07-20] MEDS: CefTRIAXone 2gm/D5W 50ml 50 ML IV SCH (21:57)
[2019-07-21] VITALS (23 sets, daily range): BP systolic 83–151; BP diastolic 44–74
[2019-07-21] MEDS: mineral oil/petrolatum ophthal oint EACHEYE SCH ×3 (02:00→14:12)
[2019-07-21] MEDS: ipratropium/albuterol 3ml nebule NEB SCH ×4 (02:42→20:02)
[2019-07-21] MEDS: HYDROcodone/acetaminophen 10/325mg tab PO PRN (03:19)
[2019-07-21 06:07] LABS: BASOPHILS # (AUTO) 0.1 X10'3 (0-0.2); BASOPHILS % (AUTO) 1.4 % (0-1); EOSINOPHILS # (AUTO) 0.1 X10'3 (0-0.9); EOSINOPHILS % (AUTO) 1.6 % (0-6); HEMATOCRIT 30.4 % (35.0-45.0); HEMOGLOBIN 9.4 g/dl (12.0-16.0); LYMPHOCYTES # (AUTO) 0.5 X10'3 (1.1-4.8); LYMPHOCYTES % (AUTO) 5.7 % (21-51); MEAN CORPUSCULAR HEMOGLOBIN 28.8 PG (27.0-31.0); MEAN CORPUSCULAR HGB CONC 30.7 g/dL (33.0-36.5); MEAN CORPUSCULAR VOLUME 93.8 FL (78-98); MEAN PLATELET VOLUME 9.7 FL (7.4-10.4); MONOCYTES # (AUTO) 0.4 X10'3 (0-0.9); NEUTROPHILS # (AUTO) 7.5 X10'3 (1.8-7.7); NEUTROPHILS % (AUTO) 86.3 % (42-75); PLATELET COUNT 174 X10'3 (140-440); RED BLOOD COUNT 3.25 X10'6 (4.20-5.60); RED CELL DISTRIBUTION WIDTH 17.5 % (11.5-14.5); WHITE BLOOD COUNT 8.6 X10'3 (4.5-11.0)
[2019-07-21 06:18] LABS: PARTIAL THROMBOPLASTIN TIME 36 SECONDS (22-32)
[2019-07-21 06:39] LABS: ALANINE AMINOTRANSFERASE 38 U/L (12-78); ALBUMIN 2.6 G/DL (3.4-5.0); ALBUMIN/GLOBULIN RATIO 0.6 (1.1-1.5); ALKALINE PHOSPHATASE 79 IU/L (46-116); ANION GAP 23 (8-16); ASPARTATE AMINO TRANSFERASE 24 U/L (10-37); BILIRUBIN,TOTAL 0.3 MG/DL (0.1-1.0); BLOOD UREA NITROGEN 110 MG/DL (7-18); BUN/CREATININE RATIO 17.3 (6.6-38.0); CALCIUM 7.8 MG/DL (8.5-10.1); CHLORIDE 109 MMOL/L (99-107); CREATININE 6.37 MG/DL (0.40-0.90); GLUCOSE 115 MG/DL (70-104); MAGNESIUM 2.6 MG/DL (1.5-2.4); POTASSIUM 5.3 MMOL/L (3.5-5.1); SODIUM 144 MMOL/L (135-145); eGFR 6 ML/MIN
[2019-07-21 06:40] LABS: PHOSPHORUS 9.1 MG/DL (2.3-4.5)
[2019-07-21 06:41] LABS: TOTAL CARBON DIOXIDE 11.6 MMOL/L (24-32)
[2019-07-21] MEDS: lactobacillus rhamnosus 10,000 MMU CELLS/CAPSULE PO SCH ×3 (07:48→20:54)
[2019-07-21] MEDS: clopidogrel 75mg tablet PO SCH (07:48)
[2019-07-21] MEDS: pantoprazole 40mg Tablet.DR PO SCH (07:48)
[2019-07-21] MEDS: heparin, porcine 5000 units/ml vial SQ SCH ×2 (07:49→20:54)
[2019-07-21] MEDS: aspirin 81mg tab.chew PO SCH (07:49)
[2019-07-21] MEDS: carvedilol 6.25mg tablet PO SCH (07:49)
[2019-07-21] MEDS: docusate sodium 100mg/10ml UD cup PO SCH ×3 (07:49→20:54)
--- NOTE | 2019-07-21 10:00 | NUR ---
d/w dr. hall regarding labs and plan of care. d/w patient about option for dialysis if needed but patient is not agreeable to that plan. Case management to work on transfering patient to a hospital in [place]. d/w family at bedside and agreeable to plan all questions answered.
[2019-07-21] MEDS: sodium bicarbonate 650mg tablet PO SCH ×3 (12:14→21:00)
[2019-07-21] MEDS ORDERED: CLOP75TA35 PO (15:40)
[2019-07-21] MEDS ORDERED: INSU100V11 SQ (15:40)
[2019-07-21] MEDS ORDERED: SODI650T29 PO (15:40)
[2019-07-21] MEDS ORDERED: HEPA500017 SQ (15:40)
[2019-07-21] MEDS ORDERED: LANTUS SQ (15:40)
[2019-07-21] MEDS ORDERED: IPRA3AMP9 NEB ×2 (15:40)
[2019-07-21] MEDS ORDERED: CEFT500V5 IM (15:44)
[2019-07-21] MEDS: ondansetron/PF 4mg/2ml inj IV PRN (18:02)
[2019-07-21] MEDS: insulin glargine (Lantus) pen - multi-dose SQ SCH (20:46)
--- NOTE | 2019-07-21 21:00 | NUR ---
patient becomes nauseated and vomitted about 750 ml of brown/pink liquid. faith ahmadi was called to make him aware - compazine ordered. patient was in the middle of taking po meds. unfortunately - she vomitted the sodium bicarb tabs and the culturelle capsule up. did not make it to the colace so patient did not receive any 2000 or 2100 medications. patient stated she felt better after the compazine - bed and bath complete. patient bradycardic already durning the vomiting episode and i did not see her HR go below 41.
[2019-07-21] MEDS ORDERED: proCHLORperazine 10 MG/2 ml inj IV PRN (21:10)
[2019-07-21] MEDS: CefTRIAXone 2gm/D5W 50ml 50 ML IV SCH (21:47)
[2019-07-22] VITALS (23 sets, daily range): BP systolic 107–140; BP diastolic 39–71
--- NOTE | 2019-07-22 00:15 | NUR ---
Call to Iain RON to make him aware that patient urine output has been zero for last 2 hours and prior to that was 7-10 ml/hr. no new orders
[2019-07-22] MEDS: ipratropium/albuterol 3ml nebule NEB SCH ×4 (02:12→20:03)
[2019-07-22 02:22] LABS: BASOPHILS % (AUTO) 0.4 % (0-1); EOSINOPHILS # (AUTO) 0.1 X10'3 (0-0.9); EOSINOPHILS % (AUTO) 0.6 % (0-6); HEMATOCRIT 29.9 % (35.0-45.0); HEMOGLOBIN 9.1 g/dl (12.0-16.0); LYMPHOCYTES # (AUTO) 0.4 X10'3 (1.1-4.8); MEAN CORPUSCULAR HEMOGLOBIN 28.8 PG (27.0-31.0); MEAN CORPUSCULAR HGB CONC 30.5 g/dL (33.0-36.5); MEAN CORPUSCULAR VOLUME 94.4 FL (78-98); MEAN PLATELET VOLUME 10.1 FL (7.4-10.4); MONOCYTES # (AUTO) 0.4 X10'3 (0-0.9); MONOCYTES % (AUTO) 4.4 % (2-12); NEUTROPHILS # (AUTO) 8.4 X10'3 (1.8-7.7); NEUTROPHILS % (AUTO) 90.6 % (42-75); PLATELET COUNT 173 X10'3 (140-440); RED BLOOD COUNT 3.17 X10'6 (4.20-5.60); RED CELL DISTRIBUTION WIDTH 17.4 % (11.5-14.5); WHITE BLOOD COUNT 9.2 X10'3 (4.5-11.0)
[2019-07-22 02:41] LABS: PARTIAL THROMBOPLASTIN TIME 35 SECONDS (22-32)
[2019-07-22 02:46] LABS: ALANINE AMINOTRANSFERASE 33 U/L (12-78); ALBUMIN 2.4 G/DL (3.4-5.0); ALBUMIN/GLOBULIN RATIO 0.6 (1.1-1.5); ALKALINE PHOSPHATASE 78 IU/L (46-116); ANION GAP 23 (8-16); ASPARTATE AMINO TRANSFERASE 19 U/L (10-37); BILIRUBIN,TOTAL 0.3 MG/DL (0.1-1.0); BLOOD UREA NITROGEN 111 MG/DL (7-18); BUN/CREATININE RATIO 15.3 (6.6-38.0); CALCIUM 7.8 MG/DL (8.5-10.1); CHLORIDE 108 MMOL/L (99-107); CREATININE 7.24 MG/DL (0.40-0.90); GLUCOSE 140 MG/DL (70-104); MAGNESIUM 2.6 MG/DL (1.5-2.4); POTASSIUM 5.9 MMOL/L (3.5-5.1); SODIUM 142 MMOL/L (135-145); TOTAL PROTEIN 6.6 G/DL (6.4-8.2); eGFR 6 ML/MIN
[2019-07-22 02:47] LABS: PHOSPHORUS 10.4 MG/DL (2.3-4.5)
[2019-07-22 02:51] LABS: TOTAL CARBON DIOXIDE 11.1 MMOL/L (24-32)
--- NOTE | 2019-07-22 04:43 | NUR ---
almonte flushed with 10 ml NS - returned 10 ml immediately into measure chamber - clear pale yellow
--- NOTE | 2019-07-22 05:08 | NUR ---
call to galdino cuevas to update him on continued no u/o , that i flushed almonte with 10 ml and got 10 ml returned, i updated am lab results specifically K+, CO2, PO4, creatinine and updated the bradycardia with ectopy. order for k excellate. I also mentioned i would give a dose of zofran and attempt to give the sodium bicarb tabs the patient missed last night due to vomiting.
[2019-07-22] MEDS ORDERED: sodium polystyrene sulfonate 15gm/60ml oral suspension PO ONE (05:15)
[2019-07-22] MEDS: ondansetron/PF 4mg/2ml inj IV PRN (05:20)
[2019-07-22] MEDS: aspirin 81mg tab.chew PO SCH ×2 (07:19→08:00)
[2019-07-22] MEDS: clopidogrel 75mg tablet PO SCH ×2 (07:19→08:00)
[2019-07-22] MEDS: lactobacillus rhamnosus 10,000 MMU CELLS/CAPSULE PO SCH ×3 (07:19→20:00)
[2019-07-22] MEDS: sodium bicarbonate 650mg tablet PO SCH ×3 (07:20→13:00)
[2019-07-22] MEDS: heparin, porcine 5000 units/ml vial SQ SCH ×2 (07:20→20:29)
[2019-07-22] MEDS: pantoprazole 40mg Tablet.DR PO SCH ×2 (07:20→07:30)
--- NOTE | 2019-07-22 07:33 | NUR ---
patient unable to tolerate oral meds. patient experiencing vomiting s/p antiemetic administration. updated faith flores for further recs
[2019-07-22] MEDS: docusate sodium 100mg/10ml UD cup PO SCH ×2 (08:00→20:00)
--- NOTE | 2019-07-22 08:27 | NUR ---
d/w dr. boyd regarding patient status VS labs etc. Dr. boyd to come and eval patient
[2019-07-22] MEDS ORDERED: heparin 1,000unit/ml 10ml vial 10 ML IV ONE (09:21)
[2019-07-22] MEDS ORDERED: albumin (human) 25% 100ml IV 100 ML IV PRN (09:25)
[2019-07-22] MEDS ORDERED: heparin 1,000 units/ml 10ml inj HE ONE ×2 (09:25)
[2019-07-22] MEDS ORDERED: heparin 1,000 units/ml 10ml inj IV ONE (09:25)
[2019-07-22] MEDS ORDERED: epoetin 20,000 units/ml inj IV ONE (09:25)
[2019-07-22] MEDS: sevelamer carbonate 800mg tablet PO SCH (18:00)
[2019-07-22 19:55] LABS: ABG BASE EXCESS -16.9 mmol/L (-2.0-3.0); ABG HCO3 10.2 mmol/L (22.0-26.0); ABG OXYGEN SATURATION 91.5 % (95-98); ABG PH (T) 7.165 (7.350-7.450); ALLEN'S TEST Positive; FCOHb 0.7 % (0.5-1.5); FLOW 1 L/min; FO2Hb 90.9 % (94-100); PATIENT TEMPERATURE 37.3; TOTAL HEMOGLOBIN 9.9 G/dl (12.0-16.0)
[2019-07-22] MEDS ORDERED: sodium bicarbonate (8.4%) inj. 150 MEQ in dextrose 5%-water 1,000 ML IV SCH (20:04)
[2019-07-22] MEDS ORDERED: sodium bicarbonate (8.4%) 1 mEq/ml syringe IV ONE (20:05)
[2019-07-22] MEDS ORDERED: sodium bicarbonate inj. 75 ML in dextrose 5% water 500ml 500 ML IV SCH (20:15)
[2019-07-22 20:17] LABS: BASOPHILS % (AUTO) 0.2 % (0-1); EOSINOPHILS % (AUTO) 0 % (0-6); HEMATOCRIT 29.1 % (35.0-45.0); HEMOGLOBIN 9.2 g/dl (12.0-16.0); LYMPHOCYTES # (AUTO) 0.3 X10'3 (1.1-4.8); MEAN CORPUSCULAR HGB CONC 31.6 g/dL (33.0-36.5); MEAN CORPUSCULAR VOLUME 91.8 FL (78-98); MEAN PLATELET VOLUME 9.9 FL (7.4-10.4); MONOCYTES # (AUTO) 0.4 X10'3 (0-0.9); MONOCYTES % (AUTO) 3.4 % (2-12); NEUTROPHILS # (AUTO) 10.1 X10'3 (1.8-7.7); NEUTROPHILS % (AUTO) 93.4 % (42-75); PLATELET COUNT 183 X10'3 (140-440); RED BLOOD COUNT 3.17 X10'6 (4.20-5.60); RED CELL DISTRIBUTION WIDTH 17.1 % (11.5-14.5); WHITE BLOOD COUNT 10.8 X10'3 (4.5-11.0)
[2019-07-22 20:27] LABS: ALANINE AMINOTRANSFERASE 33 U/L (12-78); ALBUMIN 2.5 G/DL (3.4-5.0); ALBUMIN/GLOBULIN RATIO 0.6 (1.1-1.5); ALKALINE PHOSPHATASE 83 IU/L (46-116); ANION GAP 23 (8-16); ASPARTATE AMINO TRANSFERASE 18 U/L (10-37); BILIRUBIN,TOTAL 0.4 MG/DL (0.1-1.0); BLOOD UREA NITROGEN 77 MG/DL (7-18); BUN/CREATININE RATIO 13.8 (6.6-38.0); CALCIUM 7.9 MG/DL (8.5-10.1); CHLORIDE 104 MMOL/L (99-107); CREATININE 5.57 MG/DL (0.40-0.90); GLUCOSE 149 MG/DL (70-104); MAGNESIUM 2.5 MG/DL (1.5-2.4); PARTIAL THROMBOPLASTIN TIME 32 SECONDS (22-32); PHOSPHORUS 8.7 MG/DL (2.3-4.5); POTASSIUM 4.8 MMOL/L (3.5-5.1); SODIUM 141 MMOL/L (135-145); TOTAL PROTEIN 6.7 G/DL (6.4-8.2); eGFR 7 ML/MIN
[2019-07-22 20:29] LABS: TOTAL CARBON DIOXIDE 14.1 MMOL/L (24-32)
--- NOTE | 2019-07-22 20:30 | NUR ---
summary of occurance - upon initial assessment of patient near 18:30, family was at bedside in beginning of the assessment. After taking care of this patient the previous 4 nights, i felt like this patient was not as alert as usual. Family felt this way also. Patient would not answer my questions or open her eyes. She was agitated and would only say "leave me alone" in a very garbled/mumbled speech. No distress but breaths are deepening and are long. Pupils were unequal with right being a 4 mm and left being a 2 mm. Previously pupils were only slightly unequal (4 and 3 or 3 and 2). It appeared perhaps patient was using right side more than left. I spoke to lost charge card clerk to update him on this patient- Gianluca Jerez to RT for a stat ABG to assess CO2, BS was 134, rainbow to lab. ABG Results : 7.165/29.0/73/10.2/-16.9 on 2 L NC. Gianluca Bernardo RN called Iain Hernández NP and received order for stat 1 amp bicarb IV and then start start bicarb gtt. Bicarb am p was given. Patient was slightly more active after the bicarb amp was given. Gtt was hung near 2100 and though patient remains lethargic now (00:15) , she is not as difficult to arouse and answer y questions. at 2300 - patient was able to tell me she was in [place] in 2019. She denied pain but still very drowsy. Pupils at 2300 were right 4 mm, left 3 mm. Patient equally moving right and left sides weakly. VSS, no ectopy noted, no distress.
[2019-07-22] MEDS: PRANDIN PO SCH (21:00)
[2019-07-22] MEDS: [UNRECOGNIZED DRUG - OTHER] PO SCH (21:00)
[2019-07-22] MEDS: sodium bicarbonate inj. 75 ML in dextrose 5% water 500ml 500 ML IV SCH (23:35)
[2019-07-22] MEDS: CefTRIAXone 2gm/D5W 50ml 50 ML IV SCH (23:37)
[2019-07-23] VITALS (17 sets, daily range): BP systolic 121–158; BP diastolic 47–102
[2019-07-23] MEDS: ipratropium/albuterol 3ml nebule NEB SCH ×3 (02:04→15:35)
[2019-07-23] MEDS: sodium bicarbonate inj. 75 ML in dextrose 5% water 500ml 500 ML IV SCH ×3 (02:23→13:40)
--- NOTE | 2019-07-23 03:59 | NUR ---
patient is still slightly difficult to arouse and mainly moans and groans and intermittently will answer simple questions. pupils are right 4 mm and left 2 mm -sluggish. Moving right and left side of body equally. vss, no distress, no s/sx pain. arm board to RUE - patient continually puts arms above head but bends at the site of the only PIV in place. Patient can not remember to not bend the arm so i placed the arm board with cobanCDI, no s/sx infiltration. Bicarb gtt infusing.
[2019-07-23 05:17] LABS: BASOPHILS % (AUTO) 0.1 % (0-1); EOSINOPHILS % (AUTO) 0 % (0-6); HEMATOCRIT 28.3 % (35.0-45.0); LYMPHOCYTES # (AUTO) 0.5 X10'3 (1.1-4.8); LYMPHOCYTES % (AUTO) 4.9 % (21-51); MEAN CORPUSCULAR HEMOGLOBIN 28.7 PG (27.0-31.0); MEAN CORPUSCULAR HGB CONC 31.7 g/dL (33.0-36.5); MEAN CORPUSCULAR VOLUME 90.6 FL (78-98); MEAN PLATELET VOLUME 9.7 FL (7.4-10.4); MONOCYTES # (AUTO) 0.5 X10'3 (0-0.9); MONOCYTES % (AUTO) 5.4 % (2-12); NEUTROPHILS # (AUTO) 8.3 X10'3 (1.8-7.7); NEUTROPHILS % (AUTO) 89.6 % (42-75); PLATELET COUNT 186 X10'3 (140-440); RED BLOOD COUNT 3.12 X10'6 (4.20-5.60); RED CELL DISTRIBUTION WIDTH 16.9 % (11.5-14.5); WHITE BLOOD COUNT 9.2 X10'3 (4.5-11.0)
[2019-07-23 05:32] LABS: PARTIAL THROMBOPLASTIN TIME 33 SECONDS (22-32)
[2019-07-23 05:45] LABS: ALANINE AMINOTRANSFERASE 31 U/L (12-78); ALBUMIN 2.5 G/DL (3.4-5.0); ALBUMIN/GLOBULIN RATIO 0.6 (1.1-1.5); ALKALINE PHOSPHATASE 79 IU/L (46-116); ANION GAP 27 (8-16); ASPARTATE AMINO TRANSFERASE 19 U/L (10-37); BILIRUBIN,TOTAL 0.3 MG/DL (0.1-1.0); BLOOD UREA NITROGEN 81 MG/DL (7-18); BUN/CREATININE RATIO 13.7 (6.6-38.0); CALCIUM 7.6 MG/DL (8.5-10.1); CHLORIDE 102 MMOL/L (99-107); CREATININE 5.92 MG/DL (0.40-0.90); GLUCOSE 217 MG/DL (70-104); MAGNESIUM 2.4 MG/DL (1.5-2.4); SODIUM 141 MMOL/L (135-145); TOTAL PROTEIN 6.6 G/DL (6.4-8.2); eGFR 7 ML/MIN
[2019-07-23 05:51] LABS: PHOSPHORUS 9.3 MG/DL (2.3-4.5)
[2019-07-23] MEDS: pantoprazole 40mg Tablet.DR PO SCH (07:30)
[2019-07-23] MEDS: clopidogrel 75mg tablet PO SCH (08:00)
[2019-07-23] MEDS ORDERED: folic acid/vitamin B complex w/vitamin C 0.8mg tablet PO SCH (08:00)
[2019-07-23] MEDS: aspirin 81mg tab.chew PO SCH (08:00)
[2019-07-23] MEDS: [UNRECOGNIZED DRUG - OTHER] PO SCH ×2 (08:00→13:00)
[2019-07-23] MEDS: lactobacillus rhamnosus 10,000 MMU CELLS/CAPSULE PO SCH (08:00)
[2019-07-23] MEDS: sevelamer carbonate 800mg tablet PO SCH ×2 (08:00→13:00)
[2019-07-23] MEDS: docusate sodium 100mg/10ml UD cup PO SCH (08:00)
[2019-07-23] MEDS: PRANDIN PO SCH ×2 (08:00→13:00)
[2019-07-23] MEDS ORDERED: pregabalin 25mg capsule PO SCH (08:00)
[2019-07-23] MEDS: heparin, porcine 5000 units/ml vial SQ SCH (08:09)
[2019-07-23] MEDS ORDERED: heparin 1,000unit/ml 10ml vial 10 ML IV ONE (09:07)
[2019-07-23] MEDS ORDERED: epoetin 20,000 units/ml inj IV ONE (09:10)
[2019-07-23] MEDS ORDERED: heparin 1,000 units/ml 10ml inj IV ONE (09:10)
[2019-07-23] MEDS ORDERED: albumin (human) 25% 100ml IV 100 ML IV PRN (09:10)
[2019-07-23] MEDS ORDERED: heparin 1,000 units/ml 10ml inj HE ONE ×2 (09:15)
--- NOTE | 2019-07-23 16:09 | NUR ---
patient picked up and transferred to [facility] [place] report given to transport team patient in stable condition all belongings accounted for and taken with the patient
== END 2019-07-23 16:00 | disposition short-term general hospital (02) | DRG 871 ==
LOC: ER 22:35 → CICU 2S 07-17 02:04 → CMPBEDREQ 07-17 03:25
PROVIDERS: ADMIT Internal Medicine Critical Care Medicine; ATTEND Internal Medicine Critical Care Medicine
PROC: B32T1ZZ Computerized Tomography (CT Scan) of Left Pulmonary Artery using Low Osmolar Contrast (ICD-10-PCS; 2019-07-16)
PROC: B3201ZZ Computerized Tomography (CT Scan) of Thoracic Aorta using Low Osmolar Contrast (ICD-10-PCS; 2019-07-16)
PROC: B32S1ZZ Computerized Tomography (CT Scan) of Right Pulmonary Artery using Low Osmolar Contrast (ICD-10-PCS; 2019-07-16)
PROC: 0BH17EZ Insertion of Endotracheal Airway into Trachea, Via Natural or Artificial Opening (ICD-10-PCS; principal; 2019-07-17)
PROC: 5A1935Z Respiratory Ventilation, Less than 24 Consecutive Hours (ICD-10-PCS; 2019-07-17)
PROC: 02HV33Z Insertion of Infusion Device into Superior Vena Cava, Percutaneous Approach (ICD-10-PCS; 2019-07-17)
PROC: 02HV33Z Insertion of Infusion Device into Superior Vena Cava, Percutaneous Approach (ICD-10-PCS; 2019-07-22)
PROC: 5A1D70Z Performance of Urinary Filtration, Intermittent, Less than 6 Hours Per Day (ICD-10-PCS; 2019-07-22)
PROC: 5A1D70Z Performance of Urinary Filtration, Intermittent, Less than 6 Hours Per Day (ICD-10-PCS; 2019-07-23)
DX: A41.89 Other specified sepsis (principal); I21.4 Non-ST elevation (NSTEMI) myocardial infarction; I46.9 Cardiac arrest, cause unspecified; J96.00 Acute respiratory failure, unspecified whether with hypoxia or hypercapnia; E87.2 Acidosis; G93.40 Encephalopathy, unspecified; I12.0 Hypertensive chronic kidney disease with stage 5 chronic kidney disease or end stage renal disease; N17.9 Acute kidney failure, unspecified; N18.5 Chronic kidney disease, stage 5; N39.0 Urinary tract infection, site not specified; B96.1 Klebsiella pneumoniae [K. pneumoniae] as the cause of diseases classified elsewhere; E11.22 Type 2 diabetes mellitus with diabetic chronic kidney disease; E11.319 Type 2 diabetes mellitus with unspecified diabetic retinopathy without macular edema; E11.40 Type 2 diabetes mellitus with diabetic neuropathy, unspecified; E66.9 Obesity, unspecified; R65.20 Severe sepsis without septic shock; I25.10 Atherosclerotic heart disease of native coronary artery without angina pectoris; I25.5 Ischemic cardiomyopathy; I45.10 Unspecified right bundle-branch block; J45.909 Unspecified asthma, uncomplicated; Z79.02 Long term (current) use of antithrombotics/antiplatelets; I25.2 Old myocardial infarction; Z79.4 Long term (current) use of insulin; Z95.1 Presence of aortocoronary bypass graft; Z95.5 Presence of coronary angioplasty implant and graft; Z99.2 Dependence on renal dialysis; Z68.38 Body mass index [BMI] 38.0-38.9, adult; Z79.82 Long term (current) use of aspirin; Z86.73 Personal history of transient ischemic attack (TIA), and cerebral infarction without residual deficits
CPT/HCPCS: 31500; 36415; 36556; 36600; 70450; 71045; 71275; 80048; 80053; 80305; 80320; 81001; 82330; 82550; 82553; 82570; 82803; 82810; 82948; 83036; 83605; 83735; 83880; 84100; 84134; 84145; 84156; 84300; 84443; 84484; 85018; 85025; 85610; 85730; 86885; 86900; 86901; 87040; 87070; 87077; 87081; 87088; 87186; 87207; 90935; 92508; 92616; 93005; 93306; 94002; 94003; 94640; 94667; 94668; 94760; 96365; 97110; 97161; 97530; 99291; 99292; C9113; G0257; G0378; J0696; J0780; J1200; J1265; J1644; J1815; J1940; J2150; J2250; J2270; J2405; J3010; J3490; J7060; Q4081; Q9967